=== PATIENT | female | born 1975 | race Caucasian/White ===

== ENCOUNTER 2021-07-16 16:44 | Inpatient (IN) ==
[~2021-07-16 16:44] MED LIST: DIPRIVAN VIAL ONE; NORMODYNE INJ 100 MG VIAL ONE; VERSED ONE; XYLOCAINE 2 % (PLAIN) ONE; ZOFRAN INJ 4 MG VIAL ONE
[2021-07-16] MEDS ORDERED: VANCOMYCIN IV *PREMIX 1 G/200 ML BAG 1 G/200 ML PIGGYBACK IV SCH (18:59)
[2021-07-16 19:30] LABS: BASOPHILS # (AUTO) 0.1 X10^3/uL (0.0-0.1); BASOPHILS % (AUTO) 0.3 % (0.2-1.0); EOSINOPHILS # (AUTO) 0.1 x10^3/uL (0.0-0.2); EOSINOPHILS % (AUTO) 0.4 % (0.9-2.9); HEMATOCRIT 39.9 % (36.0-47.0); HEMOGLOBIN 13.4 g/dL (12.0-16.0); LYMPHOCYTES % (AUTO) 10.4 % (21.0-51.0); MEAN CORPUSCULAR HEMOGLOBIN 27.3 pg (27.0-34.0); MEAN CORPUSCULAR HGB CONC 33.7 g/dL (33.0-35.0); MEAN PLATELET VOLUME 7.8 fL (7.4-11.0); MONOCYTES % (AUTO) 5.2 % (0.0-13.0); NEUTROPHILS # (AUTO) 16.1 x10^3/uL (2.2-4.8); NEUTROPHILS % (AUTO) 83.7 % (42.0-75.0); PLATELET COUNT 325 X10^3/uL (150.0-450.0); RED BLOOD COUNT 4.93 X10^6/uL (3.5-5.4); RED CELL DISTRIBUTION WIDTH 13.1 % (11.6-16.5); WHITE BLOOD COUNT 19.2 X10^3/uL (3.6-10.0)
[2021-07-16 19:42] LABS: ALANINE AMINOTRANSFERASE 18 Units/L (12-78); ALBUMIN 2.9 g/dL (3.4-5.0); ALKALINE PHOSPHATASE 119 Units/L (46-116); ASPARTATE AMINO TRANSFERASE 12 Units/L (15-37); BLOOD UREA NITROGEN 13 mg/dL (7-18); CALCIUM 9.2 mg/dL (8.5-10.1); CARBON DIOXIDE 26.4 mmol/L (21-32); CHLORIDE 94 mmol/L (98-107); COR CA(FOR HYPOALB) 10.1 mg/dL (8.5-10.1); COR NA(FOR HYPERGLY) 136 mmol/L (136-145); CREATININE 0.77 mg/dL (0.55-1.02); SODIUM 130 mmol/L (136-145); TOTAL PROTEIN 7.8 g/dL (6.4-8.2); eGFR NON BLACK RACES > 60 (>60)
[2021-07-16] MEDS ORDERED: ZOSYN VIAL 3.375 GRAMS IV ONE (20:07)
[2021-07-16 20:08] LABS: ERYTHROCYTE SEDIMENTATION RATE 46 MM/HOUR (0-20)
[2021-07-16] MEDS ORDERED: VANCOMYCIN IV *PREMIX 1 G/200 ML BAG 1 G/200 ML PIGGYBACK IV ONE (20:08)
[2021-07-16] MEDS ORDERED: NS 500 ML IV 500 ML IV ONE (20:09)
[2021-07-16] MEDS ORDERED: NS 100 ML IV + SPIKE MINIBAG* 100 ML IV ONE (20:09)
[2021-07-16] MEDS ORDERED: VANCOMYCIN IV *PREMIX 1.75 G/350 ML BAG 1.75 G/350 ML PIGGYBACK IV ONE (21:30)
[2021-07-16 22:07] VITALS: BMI 32.1
[2021-07-16] MEDS ORDERED: FLUZONE II4 or AFLURIA II4 IM ONE (22:07)
[2021-07-16] MEDS: NovoLIN R (or HumuLIN R) SC PRN (22:30)
[2021-07-16] MEDS: ZOSYN VIAL 3.375 GRAMS 3.375 G in NS 100 ML IV + SPIKE MINIBAG* 100 ML IV SCH (22:50)
[2021-07-17] MEDS ORDERED: TYLENOL 325 MG TAB PO ONE (04:24)
[2021-07-17] MEDS: TYLENOL 325 MG TAB PO PRN ×2 (04:30→18:30)
[2021-07-17] MEDS: ZOSYN VIAL 3.375 GRAMS 3.375 G in NS 100 ML IV + SPIKE MINIBAG* 100 ML IV SCH ×3 (05:46→22:40)
--- NOTE | 2021-07-17 07:46 | NOTE.SOAP ---
Soap Note Note for Day of Date of Exam: 07/16/21 Subjective Data Subjective Data: no change. Status post debridement of left foot at site of left great toe amputation. Plan for removal of Hardware of the right leg. Objective Data Temperature: 98.5 F Pulse Rate: 102 Respiratory Rate: 18 Blood Pressure: 143/72 O2 Sat by Pulse Oximetry: 98 Objective Data: CT angiogram shows no obvious stenosis of any vessels of either leg. Assessment Assessment: Left diabetic foot infection. Possibly infected Hardware right foot. Plan Plan: May proceed with your planned procedures . No arterial intervention plan.
[2021-07-17] MEDS ORDERED: TOPROL XL PO SCH (09:00)
[2021-07-17] MEDS: VANCOMYCIN IV *PREMIX 1.75 G/350 ML BAG 1.75 G/350 ML PIGGYBACK IV SCH ×2 (09:01→21:29)
[2021-07-17] MEDS: LIPITOR TAB 10 MG PO SCH (09:01)
[2021-07-17] MEDS: ZOLOFT PO SCH (09:02)
--- NOTE | 2021-07-17 10:02 | MRI ---
HISTORYLEFT FOOT ABSCESS, 1st toe status post injury 1 month ago, diabetesSTUDYMRI left foot without IV contrastCOMPARISONNoneTECHNIQUEMRI of the left footwithout IV contrast is performed using standard sequences in multiple planes.FINDINGSThere is likely skin ulceration in the dorsum of the 1st toe. Adjacent soft tissue edema is probable cellulitis. No evidence of an abscess is seen. The edema extends into the forefoot and midfoot regions which may be bland edema or cellulitis extension.Inhomogeneous fat saturation and toe positioning cause inhomogeneous signal in the toes. Possible mild osteomyelitis is present in the distal phalanx of the 1st toe. Less likely this is an artifactual appearance, as no obvious bony edema can be identified on the left sensitive T1 weighted imaging.There are arthritic changes in the 1st MTP joint with mild erosions in the distal head of the 1st metatarsal. Less prominent arthritic changes are seen in the other MTP joints. No fracture or bone destruction is seen.IMPRESSIONProbable cellulitis in the 1st toe with skin ulceration. Edema extends into the forefoot and midfoot which could be extension of cellulitis or reactive edema.Possible osteomyelitis in the distal phalanx of the 1st toe without overt destruction identified.Electronically signed by: Jt Epperson (Jul 17, 2021 10:00:40)
--- NOTE | 2021-07-17 10:09 | DR.H&P ---
H&P History & Physical for Day of: H&P Date: 07/17/21 Chief Complaint Chief Complaint: 45 yo female, diabetic , currently not under good control with HgB A1C of 11, who has several week history of ulcer to plantar surface of left great toe after trauma . Now with redness and swelling of the left great toe. Allergies Allergies Allergy/AdvReac Type Severity Reaction Status Date / Time codeine Allergy Verified 07/16/21 19:02 History of Present Illness History of Present Illness: As above Past Medical History Past Medical History: Depression, Diabetes and Hypertension Additional Medical History: increased cholesterol Past Surgical History Surgical History: Cholecystectomy Family History Family Medical History: Cancer Social History Does patient currently use any type of tobacco product: No Have you used tobacco products in the last 12 months: No Type of Tobacco Use: None Does any household member use tobacco: No Alcohol Use: None Drug Use: Prescription Drugs Prescription drug monitoring program results: PDMP reviewed and no concerns identified Medications Home Medications: codeine Allergy (Verified 07/16/21 19:02) CONTINUE taking the following medications atorvastatin 10 mg PO DAILY 07/16/21 [History] metformin 850 mg PO BID 07/16/21 [History] metoprolol succinate 25 mg PO BID 07/16/21 [History] sertraline 100 mg PO DAILY 07/16/21 [History] Labs Result Diagrams: 07/16/21 19:24 07/16/21 19:24 Labs: Laboratory WBC 19.2 X10^3/uL (3.6-10.0) H 07/16/21 19:24 RBC 4.93 X10^6/uL (3.5-5.4) 07/16/21 19:24 Hgb 13.4 g/dL (12.0-16.0) 07/16/21 19:24 Hct 39.9 % (36.0-47.0) 07/16/21 19:24 MCV 81.0 fL (80.0-100.0) 07/16/21 19:24 MCH 27.3 pg (27.0-34.0) 07/16/21 19:24 MCHC 33.7 g/dL (33.0-35.0) 07/16/21 19:24 RDW 13.1 % (11.6-16.5) 07/16/21 19:24 Plt Count 325 X10^3/uL (150.0-450.0) 07/16/21 19:24 MPV 7.8 fL (7.4-11.0) 07/16/21 19:24 Neut % (Auto) 83.7 % (42.0-75.0) H 07/16/21 19:24 Lymph % (Auto) 10.4 % (21.0-51.0) L 07/16/21 19:24 Wheeler % (Auto) 5.2 % (0.0-13.0) 07/16/21 19:24 Eos % (Auto) 0.4 % (0.9-2.9) L 07/16/21 19:24 Baso % (Auto) 0.3 % (0.2-1.0) 07/16/21 19:24 Neut # (Auto) 16.1 x10^3/uL (2.2-4.8) H 07/16/21 19:24 Lymph # (Auto) 2.0 X10^3/uL (1.3-2.9) 07/16/21 19:24 Wheeler # (Auto) 1.0 x10^3/uL (0.3-0.8) H 07/16/21 19:24 Eos # (Auto) 0.1 x10^3/uL (0.0-0.2) 07/16/21 19:24 Baso # (Auto) 0.1 X10^3/uL (0.0-0.1) 07/16/21 19:24 Absolute Nucleated RBC 0.1 /100WBC 07/16/21 19:24 ESR 46 MM/HOUR (0-20) H 07/16/21 19:24 Sodium 130 mmol/L (136-145) L 07/16/21 19:24 Corrected Sodium 136 mmol/L (136-145) 07/16/21 19:24 Potassium 4.7 mmol/L (3.5-5.1) 07/16/21 19:24 Chloride 94 mmol/L (98-107) L 07/16/21 19:24 Carbon Dioxide 26.4 mmol/L (21-32) 07/16/21 19:24 BUN 13 mg/dL (7-18) 07/16/21 19:24 Creatinine 0.77 mg/dL (0.55-1.02) 07/16/21 19:24 Est GFR (MDRD) Af Amer > 60 (>60) 07/16/21 19:24 Est GFR (MDRD) Non-Af > 60 (>60) 07/16/21 19:24 Glucose 335 mg/dL (65-99) H 07/16/21 19:24 POC Glucose (mg/dL) 175 mg/dL (65-99) H 07/17/21 05:40 Hemoglobin A1c 11.0 % 07/16/21 19:02 Calcium 9.2 mg/dL (8.5-10.1) 07/16/21 19:24 Corrected Calcium 10.1 mg/dL (8.5-10.1) 07/16/21 19:24 Total Bilirubin 0.40 mg/dL (0.2-1.0) 07/16/21 19:24 AST 12 Units/L (15-37) L 07/16/21 19:24 ALT 18 Units/L (12-78) 07/16/21 19:24 Alkaline Phosphatase 119 Units/L (46-116) H 07/16/21 19:24 C-Reactive Protein 94.80 mg/L (0-3.0) H 07/16/21 19:24 Total Protein 7.8 g/dL (6.4-8.2) 07/16/21 19:24 Albumin 2.9 g/dL (3.4-5.0) L 07/16/21 19:24 Globulin 4.9 g/dL (2.5-4.5) H 07/16/21 19:24 Albumin/Globulin Ratio 0.6 Ratio (1.1-2.1) L 07/16/21 19:24 SARS CoV-2 RNA Rapid KATY Negative (NEGATIVE) 07/16/21 18:00 Review of Systems Constitutional: No Symptoms Reported Eyes: No Symptoms Reported ENT: No Symptoms Reported Respiratory: No Symptoms Reported Cardiovascular: No Symptoms Reported Gastrointestinal: No Symptoms Reported Genitourinary: No Symptoms Reported Musculoskeletal: Foot Pain (left great toe) Skin: Other (ulcerated wound with exudate to the plantar surface of the left great toe with exudate ) Neurological: No Symptoms Reported Physical Exam Vital Signs: Temperature 97.7 F Pulse Rate [Left] 94 Pulse Rate 102 Respiratory Rate 18 Blood Pressure [Right Arm] 138/69 Blood Pressure 143/72 O2 Sat by Pulse Oximetry 97 Oriented: Normal, Time, Person and Place Eyes: Normal Ear: Normal Nose: Normal Throat: Normal Respiratory: Clear Throughout Cardiovascular: Normal and Other (all pulse palpable of the LE ) : Normal Auscultation: Bowel Sounds: Normal Palpation: Normal Tenderness: Normal Skin: Other (4x3x0.3 cm ulcerated wound with exudate to the plantar left great toe with mild redness. ) Musculoskeletal: Normal Psychiatric: Normal Mood Description: Calm Affect: Normal Speech Pattern: Clear Assessment/Plan (1) Cellulitis of great toe, left: Status: Acute Plan: IV Vancomycin and Zosyn, MRI of the left foot . Will need debridement possible amputation left great toe (2) Diabetes 1.5, managed as type 2: Status: Acute Plan: Sliding scale insulin now. Will discuss further treatment with her PCP. (3) Hyperlipidemia: Status: Acute Plan: atorvastatin (4) Depression: Status: Acute Plan: Sertraline (5) Ulcer of left great toe due to diabetes mellitus: Status: Acute Plan: see above Review Patient was examined?: Yes
--- NOTE | 2021-07-17 10:54 | RAD ---
HISTORYPRE OP, OSTEOMYELITIS OF LEFT FOOT Relevant Clinical InformationSTUDYCHEST, 1 VIEWCOMPARISONNoneFINDINGSThe trachea is midline. The cardiac silhouette is unremarkable. The lungs are clear without focal infiltrate or effusion. The bony thorax is unremarkable.IMPRESSIONNo acute cardiopulmonary findings .Electronically signed by: Maxine Portillo (Jul 17, 2021 10:51:33)
[2021-07-17] MEDS: MARCAINE 0.25% INJ ONE ×2 (11:05→13:38)
[2021-07-17] MEDS: BETADINE SOLN ONE ×4 (11:05→13:39)
[2021-07-17] MEDS: FENTANYL VIAL INJ 100 mcg ONE ×2 (11:58→13:38)
[2021-07-17] MEDS ORDERED: NS 1,000 ML IV 1,000 ML ONE (11:58)
--- NOTE | 2021-07-17 12:01 | DR.CONSULT ---
CONSULT Consultation for Day of: Date: 07/17/21 Chief Complaint Chief Complaint: left foot infection. Allergies Allergies Allergy/AdvReac Type Severity Reaction Status Date / Time codeine Allergy Verified 07/16/21 19:02 History of Present Illness History of Present Illness: Mrs. Lloyd is a 45 yo female with a Hx of uncontrolled DM. Her last A1c was 10.5. She stepped on a rock about 2 weeks and developed a wound to the left plantar hallux. She does walk bearfoot and does not use DM shoes. The wound became worse. She reports very minimal pain. She also relates she has neuropathy. She has not had any treatment for this yet. She reports some fevers and chills in the last few days. She denies any n/v/sob/calf pain. Past Medical History Past Medical History: Depression, Diabetes and Hypertension Additional Medical History: increased cholesterol Past Surgical History Surgical History: Cholecystectomy Family History Family Medical History: Cancer Social History Does patient currently use any type of tobacco product: No Have you used tobacco products in the last 12 months: No Type of Tobacco Use: None Does any household member use tobacco: No Alcohol Use: None Drug Use: Prescription Drugs Medications Home Medications: codeine Allergy (Verified 07/16/21 19:02) CONTINUE taking the following medications atorvastatin 10 mg PO DAILY 07/16/21 [History] metformin 850 mg PO BID 07/16/21 [History] metoprolol succinate 25 mg PO BID 07/16/21 [History] sertraline 100 mg PO DAILY 07/16/21 [History] Physical Exam Vital Signs: Temperature 97.7 F Pulse Rate [Left] 94 Respiratory Rate 18 Blood Pressure [Right Arm] 138/69 O2 Sat by Pulse Oximetry 97 Skin: Other (Left foot plantar hallux wound. The base of the wound is fibrotic. Measures approximately 2.0 cm x 1.0 cm. She has about erythema and edema extending from the wound circumferentially around the hallux to the mpj. It is oozing serous vs purulent drainage. Malodorous. No pain on palpation. ) Plan (1) Cellulitis of great toe, left: Status: Acute (2) Diabetes 1.5, managed as type 2: Status: Acute (3) Hyperlipidemia: Status: Acute (4) Depression: Status: Acute (5) Ulcer of left great toe due to diabetes mellitus: Status: Acute (6) Osteomyelitis of ankle and foot: Status: Acute Plan: Mrs. Lloyd is a 45 year old female with DM. Infected ulcer left plantar hallux. left distal phalanx osteomyelitis. Radiographs with evidence of soft tissue gas around the distal phalanx which correlates with the wound. MRI with evidence of cellulitis and osteo of the distal phalanx. She is currently NAD. Her wbc is 19.2. Plan: Continue NPO. Plan for the OR today for left ulcer debridement with possible left hallux amputation. We plan on sending specimen to micro and path. We will likely leave the wound open with packing for a few days. Continue abx. Pending vascular studies. NWB on the left PT evaluation Will monitor. Please do not hesitate to contact me with questions or concerns. Parker Jerome, Fellow. [facility] [phone]
[2021-07-17] MEDS ORDERED: SUPRANE ONE (12:16)
[2021-07-17] MEDS ORDERED: DIPRIVAN VIAL ONE (12:16)
[2021-07-17] MEDS ORDERED: REGLAN INJ 10 MG VIAL ONE (12:16)
[2021-07-17] MEDS ORDERED: VERSED ONE (12:16)
[2021-07-17] MEDS ORDERED: ZOFRAN INJ 4 MG VIAL ONE (12:16)
[2021-07-17] MEDS ORDERED: REGLAN INJ 10 MG VIAL IVP PRN (12:53)
[2021-07-17] MEDS ORDERED: BARHEMSYS INJ IVP PRN (12:53)
[2021-07-17] MEDS ORDERED: ZOFRAN INJ 4 MG VIAL IVP PRN (12:53)
[2021-07-17] MEDS ORDERED: PHENERGAN INJ 25 MG IM PRN (12:53)
[2021-07-17] MEDS ORDERED: BENADRYL INJ 50 MG VIAL IVP PRN (12:53)
[2021-07-17] MEDS ORDERED: DILAUDID INJ IVP PRN (12:53)
--- NOTE | 2021-07-17 14:34 | VAS ---
LOWER EXT ARTERIAL-UNILATERALHISTORY:LEFT FOOT ULCER, GREAT TOEComparison:NoneTechnique:Multiple brown scale and color flow Doppler images of the left lower extremity arterial system were obtained. Interrogation of the common femoral artery, superficial femoral artery, popliteal artery, and tibial arteries was performed.Findings:Triphasic and biphasic waveforms are seen throughout the left lower extremity from the common femoral arterial system to the tibial runoff.Left extremity:Common femoral : 90 cm/sSuperficial femoral proximal: 78 cm/sSuperficial femoral mid: 74 cm/sSuperficial femoral distal : 129 cm/sPopliteal : 71 cm/sPosterior tibial : 175 cm/sAnterior tibial /dorsalis pedis: 36 cm/sIMPRESSION:Likely areas of mild hemodynamically significant stenosis are present in the region of the distal left SFA and in the left MIXER BLENDER.http://www.ncbi.nlm.nih.gov/pubmed/[email or web address] ically signed by: Jt Epperson (Jul 17, 2021 14:32:51)
[2021-07-17] MEDS: NovoLIN R (or HumuLIN R) SC PRN ×2 (16:51→21:32)
--- NOTE | 2021-07-17 17:12 | RAD ---
EXAM: LEFT FOOT X-RAY SERIESHISTORY: Foot pain. Postop great toe amputation.TECHNIQUE: 3 viewsCOMPARISON: None available.FINDINGS:Status post amputation of the distal aspect of the great toe at the level of the interphalangeal joint. No stump bone erosion reminiscent of osteomyelitis is seen.There is no acute bony fracture, or joint subluxation or dislocation seen. No focal bone erosion or sclerosis is seen. No evidence for inflammatory or degenerative arthritis is seen. There is a prominent, approximately 1.1 cm, plantar calcaneal bone spur.There is peripheral atherosclerosis; rule out diabetic vasculopathy. There is soft tissue irregularity with suggestion of increased density and soft tissue emphysema involving the distal stump of the great toe which in keeping with recent postsurgical change. No foreign body is seen.IMPRESSION:1. Status post amputation of the distal aspect of the great toe at the level of the interphalangeal joint.2. No stump bone erosion reminiscent of osteomyelitis is seen.3. No acute bony fracture, or joint subluxation or dislocation seen.4. Soft tissue irregularity with suggestion of increased density and soft tissue emphysema involving the distal stump of the great toe which in keeping with recent postsurgical change.5. Peripheral atherosclerosis; rule out diabetic vasculopathy.6. Consider follow-up evaluation with MRI to rule out radiographically occult early osteomyelitis if clinically warranted.Electronically signed by: Last Ribera (Jul 17, 2021 17:10:37)
[2021-07-18] MEDS: TYLENOL 325 MG TAB PO PRN ×4 (03:53→23:27)
[2021-07-18 04:48] LABS: BASOPHILS # (AUTO) 0.1 X10^3/uL (0.0-0.1); BASOPHILS % (AUTO) 0.8 % (0.2-1.0); EOSINOPHILS # (AUTO) 0.2 x10^3/uL (0.0-0.2); EOSINOPHILS % (AUTO) 2.2 % (0.9-2.9); HEMATOCRIT 39.7 % (36.0-47.0); HEMOGLOBIN 13.5 g/dL (12.0-16.0); LYMPHOCYTES # (AUTO) 2.5 X10^3/uL (1.3-2.9); LYMPHOCYTES % (AUTO) 26.9 % (21.0-51.0); MEAN CORPUSCULAR HEMOGLOBIN 27.3 pg (27.0-34.0); MEAN CORPUSCULAR HGB CONC 33.9 g/dL (33.0-35.0); MEAN CORPUSCULAR VOLUME 80.5 fL (80.0-100.0); MEAN PLATELET VOLUME 7.8 fL (7.4-11.0); MONOCYTES # (AUTO) 0.7 x10^3/uL (0.3-0.8); MONOCYTES % (AUTO) 7.7 % (0.0-13.0); NEUTROPHILS # (AUTO) 5.8 x10^3/uL (2.2-4.8); NEUTROPHILS % (AUTO) 62.4 % (42.0-75.0); PLATELET COUNT 346 X10^3/uL (150.0-450.0); RED BLOOD COUNT 4.94 X10^6/uL (3.5-5.4); RED CELL DISTRIBUTION WIDTH 12.9 % (11.6-16.5); WHITE BLOOD COUNT 9.3 X10^3/uL (3.6-10.0)
[2021-07-18 04:54] LABS: ALANINE AMINOTRANSFERASE 18 Units/L (12-78); ALBUMIN 2.6 g/dL (3.4-5.0); ALKALINE PHOSPHATASE 118 Units/L (46-116); ASPARTATE AMINO TRANSFERASE 14 Units/L (15-37); BLOOD UREA NITROGEN 7 mg/dL (7-18); CALCIUM 8.6 mg/dL (8.5-10.1); CARBON DIOXIDE 25.4 mmol/L (21-32); CHLORIDE 99 mmol/L (98-107); COR CA(FOR HYPOALB) 9.7 mg/dL (8.5-10.1); COR NA(FOR HYPERGLY) 135 mmol/L (136-145); CREATININE 0.56 mg/dL (0.55-1.02); SODIUM 133 mmol/L (136-145); TOTAL PROTEIN 7.3 g/dL (6.4-8.2); eGFR NON BLACK RACES > 60 (>60)
[2021-07-18] MEDS: ZOSYN VIAL 3.375 GRAMS 3.375 G in NS 100 ML IV + SPIKE MINIBAG* 100 ML IV SCH ×3 (05:40→22:47)
[2021-07-18] MEDS: NovoLIN R (or HumuLIN R) SC PRN ×4 (06:11→21:41)
[2021-07-18] MEDS ORDERED: BETADINE SOLN ONE (06:18)
[2021-07-18] MEDS ORDERED: PERCOCET TAB 5/325 MG PO PRN (06:31)
[2021-07-18] MEDS ORDERED: PHARMACY COMMENT IV ONE (08:30)
[2021-07-18] MEDS ORDERED: ZOLOFT ONE (08:38)
[2021-07-18] MEDS: ZOLOFT PO SCH (08:43)
[2021-07-18] MEDS: LIPITOR TAB 10 MG PO SCH (08:46)
[2021-07-18] MEDS: VANCOMYCIN IV *PREMIX 1.75 G/350 ML BAG 1.75 G/350 ML PIGGYBACK IV SCH ×2 (08:46→21:30)
--- NOTE | 2021-07-18 11:17 | PCM.PROG ---
Progress Note Progress Note for Day of Date of Exam: 07/18/21 Subjective Subjective: Mrs. Lloyd is a 45 year old DM who is s/p left partial hallux amputation, DOS was 07/17. Patient is doing well with minimal pain. No issues over night. She denies any f/c/n/v/sob/calf pain this morning. Past Medical Family Social History Past Med/Fam/Surg Hx: No changes since H&P Allergies: Allergies codeine Allergy (Verified 07/16/21 19:02) Vital Signs and I&O's Vital Signs: Temperature 98.9 F Pulse Rate [Left] 97 Pulse Rate 98 Respiratory Rate 20 Blood Pressure [Right Arm] 166/79 Blood Pressure 134/79 O2 Sat by Pulse Oximetry 95 Intake and Output: Intake & Output 07/15/21 07/16/21 07/17/21 07/18/21 23:59 23:59 23:59 23:59 Intake Total 400 / 400 2714 / 2714 640 / 640 Output Total 1009 / 1009 Balance 400 / 400 1705 / 1705 640 / 640 Physical Exam Oriented: Normal, Time, Person and Place Eyes: Normal Ear: Normal Nose: Normal Throat: Normal Cardiovascular: Normal and Other (all pulse palpable of the LE ) : Normal Auscultation: Bowel Sounds: Normal Tenderness: Normal Skin: Other ( Left foot wound along the hallux with the proximal phalanx exposed. Healthy bleeding noted. The skin edges appear viable. No fibrotic or necrotic tissue appreciated. No purulence noted. Mild erythema around the great toe, about 1.0 cm. No malodor. No pain on palpation. ) Musculoskeletal: Normal Psychiatric: Normal Mood Description: Calm Affect: Normal Speech Pattern: Clear and Appropriate Laboratory and Diagnostics Result Diagrams: 07/18/21 04:05 07/18/21 04:05 Labs: 07/17/21 12:32 Toe - Left Big Wound Gram Stain - Final Laboratory WBC 9.3 X10^3/uL (3.6-10.0) D 07/18/21 04:05 RBC 4.94 X10^6/uL (3.5-5.4) 07/18/21 04:05 Hgb 13.5 g/dL (12.0-16.0) 07/18/21 04:05 Hct 39.7 % (36.0-47.0) 07/18/21 04:05 MCV 80.5 fL (80.0-100.0) 07/18/21 04:05 MCH 27.3 pg (27.0-34.0) 07/18/21 04:05 MCHC 33.9 g/dL (33.0-35.0) 07/18/21 04:05 RDW 12.9 % (11.6-16.5) 07/18/21 04:05 Plt Count 346 X10^3/uL (150.0-450.0) 07/18/21 04:05 MPV 7.8 fL (7.4-11.0) 07/18/21 04:05 Neut % (Auto) 62.4 % (42.0-75.0) 07/18/21 04:05 Lymph % (Auto) 26.9 % (21.0-51.0) 07/18/21 04:05 Bullitt % (Auto) 7.7 % (0.0-13.0) 07/18/21 04:05 Eos % (Auto) 2.2 % (0.9-2.9) 07/18/21 04:05 Baso % (Auto) 0.8 % (0.2-1.0) 07/18/21 04:05 Neut # (Auto) 5.8 x10^3/uL (2.2-4.8) H 07/18/21 04:05 Lymph # (Auto) 2.5 X10^3/uL (1.3-2.9) 07/18/21 04:05 Bullitt # (Auto) 0.7 x10^3/uL (0.3-0.8) 07/18/21 04:05 Eos # (Auto) 0.2 x10^3/uL (0.0-0.2) 07/18/21 04:05 Baso # (Auto) 0.1 X10^3/uL (0.0-0.1) 07/18/21 04:05 Absolute Nucleated RBC 0.0 /100WBC 07/18/21 04:05 ESR 46 MM/HOUR (0-20) H 07/16/21 19:24 Sodium 133 mmol/L (136-145) L 07/18/21 04:05 Corrected Sodium 135 mmol/L (136-145) L 07/18/21 04:05 Potassium 3.7 mmol/L (3.5-5.1) 07/18/21 04:05 Chloride 99 mmol/L (98-107) 07/18/21 04:05 Carbon Dioxide 25.4 mmol/L (21-32) 07/18/21 04:05 BUN 7 mg/dL (7-18) 07/18/21 04:05 Creatinine 0.56 mg/dL (0.55-1.02) 07/18/21 04:05 Est GFR (MDRD) Af Amer > 60 (>60) 07/18/21 04:05 Est GFR (MDRD) Non-Af > 60 (>60) 07/18/21 04:05 Glucose 198 mg/dL (65-99) H 07/18/21 04:05 POC Glucose (mg/dL) 249 mg/dL (65-99) H 07/18/21 06:05 Hemoglobin A1c 11.0 % 07/16/21 19:02 Calcium 8.6 mg/dL (8.5-10.1) 07/18/21 04:05 Corrected Calcium 9.7 mg/dL (8.5-10.1) 07/18/21 04:05 Total Bilirubin 0.40 mg/dL (0.2-1.0) 07/18/21 04:05 AST 14 Units/L (15-37) L 07/18/21 04:05 ALT 18 Units/L (12-78) 07/18/21 04:05 Alkaline Phosphatase 118 Units/L (46-116) H 07/18/21 04:05 C-Reactive Protein 94.80 mg/L (0-3.0) H 07/16/21 19:24 Total Protein 7.3 g/dL (6.4-8.2) 07/18/21 04:05 Albumin 2.6 g/dL (3.4-5.0) L 07/18/21 04:05 Globulin 4.7 g/dL (2.5-4.5) H 07/18/21 04:05 Albumin/Globulin Ratio 0.6 Ratio (1.1-2.1) L 07/18/21 04:05 SARS CoV-2 RNA Rapid KATY Negative (NEGATIVE) 07/16/21 18:00 Tissue Pathology To follow 07/17/21 12:32 Plan (1) Cellulitis of great toe, left: Status: Acute Plan: IV Vancomycin and Zosyn, MRI of the left foot . Will need debridement possible amputation left great toe (2) Diabetes 1.5, managed as type 2: Status: Acute Plan: Sliding scale insulin now. Will discuss further treatment with her PCP. (3) Hyperlipidemia: Status: Acute Plan: atorvastatin (4) Depression: Status: Acute Plan: Sertraline (5) Ulcer of left great toe due to diabetes mellitus: Status: Acute Plan: see above (6) Osteomyelitis of ankle and foot: Status: Acute Plan: Mrs. Lloyd is a 45 year old female who is s/p partial hallux amp on the left. Wound kept open post op. healthy bleeding noted. No purulence. decreased erythema. Intra op cultures are showing GPC and gram neg rods. Post op xrays with expected changes that show disarticulation at the IPJ. Her white coun t is 9.3, down from 19. She is with VSS and NAD. Plan: Wound flushed with sterile saline Dressed with betadine soaked gauze and dsd PWB on the left with heel touch only in a post op shoe. PT eval. Continue abx NPO after midnight. Plan for the OR for delayed primary closure. Will monitor. Please do not hesitate to contact me with questions or concerns Parker Jerome, Fellow [facility] [phone]
--- NOTE | 2021-07-18 19:21 | NOTE.SOAP ---
Soap Note Note for Day of Date of Exam: 07/18/21 Subjective Data Subjective Data: Patient admitted with osteomyelitis of the left great Toe with poorly controlled diabetes. She was admitted by me and had an amputation of the left great toe yesterday. She continues on IV antibiotics. Podiatry Services planning delayed closure of the wound of the left foot tomorrow . Hopefully she can be discharged shortly thereafter. Objective Data Temperature: 98 F Pulse Rate: 91 Respiratory Rate: 18 Blood Pressure: 160/76 O2 Sat by Pulse Oximetry: 98 Objective Data: No complaints. Dressing intact left foot Assessment Assessment: Podiatry Service planning delayed closure of left foot tomorrow Plan Plan: plan to discharge tomorrow after surgical closure of the left foot wound. She will follow up with her primary care provider to better assess and treat her diabetes. That is already been planned and she has already contacted her PCP.
[2021-07-18 21:15] LABS: CREATININE 0.62 mg/dL (0.55-1.02)
[2021-07-19 05:06] LABS: BASOPHILS # (AUTO) 0.1 X10^3/uL (0.0-0.1); BASOPHILS % (AUTO) 0.7 % (0.2-1.0); EOSINOPHILS # (AUTO) 0.2 x10^3/uL (0.0-0.2); EOSINOPHILS % (AUTO) 3.1 % (0.9-2.9); HEMATOCRIT 38.5 % (36.0-47.0); LYMPHOCYTES # (AUTO) 2.6 X10^3/uL (1.3-2.9); LYMPHOCYTES % (AUTO) 31.7 % (21.0-51.0); MEAN CORPUSCULAR HEMOGLOBIN 26.8 pg (27.0-34.0); MEAN CORPUSCULAR HGB CONC 33.8 g/dL (33.0-35.0); MEAN CORPUSCULAR VOLUME 79.5 fL (80.0-100.0); MEAN PLATELET VOLUME 7.7 fL (7.4-11.0); MONOCYTES # (AUTO) 0.6 x10^3/uL (0.3-0.8); MONOCYTES % (AUTO) 7.2 % (0.0-13.0); NEUTROPHILS # (AUTO) 4.6 x10^3/uL (2.2-4.8); NEUTROPHILS % (AUTO) 57.3 % (42.0-75.0); PLATELET COUNT 288 X10^3/uL (150.0-450.0); RED BLOOD COUNT 4.84 X10^6/uL (3.5-5.4); RED CELL DISTRIBUTION WIDTH 12.9 % (11.6-16.5); WHITE BLOOD COUNT 8.1 X10^3/uL (3.6-10.0)
[2021-07-19 05:15] LABS: ALANINE AMINOTRANSFERASE 19 Units/L (12-78); ALBUMIN 2.4 g/dL (3.4-5.0); ALKALINE PHOSPHATASE 126 Units/L (46-116); ASPARTATE AMINO TRANSFERASE 15 Units/L (15-37); BLOOD UREA NITROGEN 9 mg/dL (7-18); CALCIUM 8.6 mg/dL (8.5-10.1); CARBON DIOXIDE 24.6 mmol/L (21-32); CHLORIDE 102 mmol/L (98-107); COR CA(FOR HYPOALB) 9.9 mg/dL (8.5-10.1); COR NA(FOR HYPERGLY) 138 mmol/L (136-145); CREATININE 0.54 mg/dL (0.55-1.02); SODIUM 136 mmol/L (136-145); TOTAL PROTEIN 6.8 g/dL (6.4-8.2); eGFR NON BLACK RACES > 60 (>60)
[2021-07-19] MEDS: NovoLIN R (or HumuLIN R) SC PRN (06:06)
[2021-07-19] MEDS: ZOSYN VIAL 3.375 GRAMS 3.375 G in NS 100 ML IV + SPIKE MINIBAG* 100 ML IV SCH ×2 (06:06→14:18)
[2021-07-19] MEDS ORDERED: BETADINE SOLN ONE (07:54)
[2021-07-19] MEDS ORDERED: MARCAINE 0.25% INJ ONE (07:54)
[2021-07-19] MEDS: VANCOMYCIN IV *PREMIX 1.75 G/350 ML BAG 1.75 G/350 ML PIGGYBACK IV SCH (08:00)
[2021-07-19] MEDS ORDERED: NS 1,000 ML IV 1,000 ML ONE (08:48)
[2021-07-19] MEDS ORDERED: OFIRMEV IV 1000 MG VIAL 1,000 MG/100 ML VIAL IV ONE (08:58)
[2021-07-19] MEDS ORDERED: FENTANYL VIAL INJ 100 mcg ONE (09:54)
[2021-07-19] MEDS ORDERED: ZOLOFT ONE (11:27)
[2021-07-19] MEDS: ZOLOFT PO SCH (11:31)
[2021-07-19] MEDS: LIPITOR TAB 10 MG PO SCH (11:31)
[2021-07-19 14:18] VITALS: BP 144/74
--- NOTE | 2021-07-19 15:53 | W.DIS.FURT ---
Summary of Discharge Discharge Summary of Date Date of Exam: 07/19/21 Admission Date Date of Admission: 07/16/21 Admission Diagnosis Hospital Course: This 45 year old diabetic presented on the day of admission with significant ulceration of the plantar aspect of the left great toe with surrounding cellulitis. She started on IV antibiotics. MRI was consistent with osteomyelitis and she underwent amputation of the left great toe .on July 19 2021 she underwent secondary delayed closure of the wound and will be discharged home on PO clindamycin 150 mg poq ID and Percocet 5mg tablets one every six hours PRN pain . The patient is diabetic and on presentation her hemoglobin A1c was 11. This has been discussed with her primary care provider who will deal with her blood sugar as an outpatient. Vital Signs: Vital Signs (72 hours) 07/16/21 20:00 07/16/21 23:56 07/17/21 04:00 Temperature 98.8 F 98.5 F 98.5 F Pulse Rate Pulse Rate [Left] 118 H 101 H 96 H Respiratory Rate 20 22 21 Blood Pressure Blood Pressure [Left Arm] Blood Pressure [Right Arm] 145/85 143/79 138/77 O2 Sat by Pulse Oximetry 98 98 97 07/17/21 04:30 07/17/21 05:30 07/17/21 07:54 Temperature 97.7 F Pulse Rate Pulse Rate [Left] 94 H Respiratory Rate 18 18 18 Blood Pressure Blood Pressure [Left Arm] Blood Pressure [Right Arm] 138/69 O2 Sat by Pulse Oximetry 97 07/17/21 11:59 07/17/21 12:45 07/17/21 13:00 Temperature 98.4 F 98.2 F 98.0 F Pulse Rate 99 H 107 H Pulse Rate [Left] 104 H Respiratory Rate 18 18 18 Blood Pressure 97/54 151/80 Blood Pressure [Left Arm] Blood Pressure [Right Arm] 192/93 O2 Sat by Pulse Oximetry 99 99 99 07/17/21 13:05 07/17/21 13:10 07/17/21 13:15 Temperature Pulse Rate 105 H 100 H 98 H Pulse Rate [Left] Respiratory Rate 16 16 16 Blood Pressure 143/82 143/82 134/79 Blood Pressure [Left Arm] Blood Pressure [Right Arm] O2 Sat by Pulse Oximetry 96 94 L 93 L 07/17/21 13:30 07/17/21 13:45 07/17/21 14:00 Temperature 98.2 F 98.2 F Pulse Rate Pulse Rate [Left] 103 H 97 H 92 H Respiratory Rate 20 18 18 Blood Pressure Blood Pressure [Left Arm] Blood Pressure [Right Arm] 136/74 132/67 118/59 O2 Sat by Pulse Oximetry 96 98 98 07/17/21 14:15 07/17/21 14:30 07/17/21 15:30 Temperature 98.6 F Pulse Rate Pulse Rate [Left] 92 H 97 H 94 H Respiratory Rate 18 18 20 Blood Pressure Blood Pressure [Left Arm] Blood Pressure [Right Arm] 125/59 140/70 152/80 O2 Sat by Pulse Oximetry 98 98 96 07/17/21 16:30 07/17/21 17:30 07/17/21 18:30 Temperature 97.6 F 98.6 F 98.4 F Pulse Rate Pulse Rate [Left] 86 103 H 98 H Respiratory Rate 20 20 18 Blood Pressure Blood Pressure [Left Arm] Blood Pressure [Right Arm] 156/81 164/78 138/83 O2 Sat by Pulse Oximetry 96 94 L 96 07/17/21 19:30 07/17/21 20:00 07/17/21 23:20 Temperature 98.3 F Pulse Rate Pulse Rate [Left] 95 H Respiratory Rate 23 23 23 Blood Pressure Blood Pressure [Left Arm] Blood Pressure [Right Arm] 145/71 O2 Sat by Pulse Oximetry 96 07/17/21 23:50 07/18/21 00:00 07/18/21 03:53 Temperature 98.6 F Pulse Rate Pulse Rate [Left] 93 H Respiratory Rate 23 22 20 Blood Pressure Blood Pressure [Left Arm] Blood Pressure [Right Arm] 175/85 O2 Sat by Pulse Oximetry 97 07/18/21 04:00 07/18/21 04:53 07/18/21 08:00 Temperature 98.4 F 98.9 F Pulse Rate Pulse Rate [Left] 93 H 97 H Respiratory Rate 22 20 18 Blood Pressure Blood Pressure [Left Arm] Blood Pressure [Right Arm] 142/80 166/79 O2 Sat by Pulse Oximetry 97 95 07/18/21 08:48 07/18/21 09:48 07/18/21 12:00 Temperature 98.1 F Pulse Rate Pulse Rate [Left] 92 H Respiratory Rate 20 20 20 Blood Pressure Blood Pressure [Left Arm] Blood Pressure [Right Arm] 149/74 O2 Sat by Pulse Oximetry 98 07/18/21 16:00 07/18/21 17:02 07/18/21 18:02 Temperature 98.0 F Pulse Rate Pulse Rate [Left] 91 H Respiratory Rate 18 20 20 Blood Pressure Blood Pressure [Left Arm] Blood Pressure [Right Arm] 160/76 O2 Sat by Pulse Oximetry 98 07/18/21 19:21 07/18/21 20:00 07/18/21 23:27 Temperature 98 F 98.9 F Pulse Rate 91 H Pulse Rate [Left] 90 Respiratory Rate 18 22 20 Blood Pressure 160/76 Blood Pressure [Left Arm] Blood Pressure [Right Arm] 172/81 O2 Sat by Pulse Oximetry 98 96 07/19/21 00:00 07/19/21 00:27 07/19/21 04:00 Temperature 97.9 F 97.9 F Pulse Rate Pulse Rate [Left] 84 92 H Respiratory Rate 22 20 19 Blood Pressure Blood Pressure [Left Arm] Blood Pressure [Right Arm] 163/79 164/81 O2 Sat by Pulse Oximetry 98 98 07/19/21 08:00 07/19/21 11:00 07/19/21 11:15 Temperature 98.4 F 98.2 F 98.2 F Pulse Rate Pulse Rate [Left] 96 H 91 H 89 Respiratory Rate 20 20 20 Blood Pressure Blood Pressure [Left Arm] 158/69 138/67 Blood Pressure [Right Arm] 171/90 O2 Sat by Pulse Oximetry 99 96 98 07/19/21 11:46 07/19/21 12:00 07/19/21 12:16 Temperature 98.0 F 98.0 F 98.0 F Pulse Rate Pulse Rate [Left] 90 87 93 H Respiratory Rate 20 20 20 Blood Pressure Blood Pressure [Left Arm] 143/70 136/68 141/70 Blood Pressure [Right Arm] O2 Sat by Pulse Oximetry 98 97 98 07/19/21 13:26 07/19/21 14:17 Temperature 98.6 F 98.6 F Pulse Rate Pulse Rate [Left] 93 H 95 H Respiratory Rate 20 20 Blood Pressure Blood Pressure [Left Arm] 135/66 144/74 Blood Pressure [Right Arm] O2 Sat by Pulse Oximetry 97 96 Labs: Laboratory Last Values WBC 8.1 X10^3/uL (3.6-10.0) 07/19/21 04:20 RBC 4.84 X10^6/uL (3.5-5.4) 07/19/21 04:20 Hgb 13.0 g/dL (12.0-16.0) 07/19/21 04:20 Hct 38.5 % (36.0-47.0) 07/19/21 04:20 MCV 79.5 fL (80.0-100.0) L 07/19/21 04:20 MCH 26.8 pg (27.0-34.0) L 07/19/21 04:20 MCHC 33.8 g/dL (33.0-35.0) 07/19/21 04:20 RDW 12.9 % (11.6-16.5) 07/19/21 04:20 Plt Count 288 X10^3/uL (150.0-450.0) 07/19/21 04:20 MPV 7.7 fL (7.4-11.0) 07/19/21 04:20 Neut % (Auto) 57.3 % (42.0-75.0) 07/19/21 04:20 Lymph % (Auto) 31.7 % (21.0-51.0) 07/19/21 04:20 [place] % (Auto) 7.2 % (0.0-13.0) 07/19/21 04:20 Eos % (Auto) 3.1 % (0.9-2.9) H 07/19/21 04:20 Baso % (Auto) 0.7 % (0.2-1.0) 07/19/21 04:20 Neut # (Auto) 4.6 x10^3/uL (2.2-4.8) 07/19/21 04:20 Lymph # (Auto) 2.6 X10^3/uL (1.3-2.9) 07/19/21 04:20 [place] # (Auto) 0.6 x10^3/uL (0.3-0.8) 07/19/21 04:20 Eos # (Auto) 0.2 x10^3/uL (0.0-0.2) 07/19/21 04:20 Baso # (Auto) 0.1 X10^3/uL (0.0-0.1) 07/19/21 04:20 Absolute Nucleated RBC 0.1 /100WBC 07/19/21 04:20 ESR 46 MM/HOUR (0-20) H 07/16/21 19:24 Sodium 136 mmol/L (136-145) 07/19/21 04:20 Corrected Sodium 138 mmol/L (136-145) 07/19/21 04:20 Potassium 3.6 mmol/L (3.5-5.1) 07/19/21 04:20 Chloride 102 mmol/L (98-107) 07/19/21 04:20 Carbon Dioxide 24.6 mmol/L (21-32) 07/19/21 04:20 BUN 9 mg/dL (7-18) 07/19/21 04:20 Creatinine 0.54 mg/dL (0.55-1.02) L 07/19/21 04:20 Est GFR (MDRD) Af Amer > 60 (>60) 07/19/21 04:20 Est GFR (MDRD) Non-Af > 60 (>60) 07/19/21 04:20 Glucose 197 mg/dL (65-99) H 07/19/21 04:20 POC Glucose (mg/dL) 199 mg/dL (65-99) H 07/19/21 12:16 Hemoglobin A1c 11.0 % 07/16/21 19:02 Calcium 8.6 mg/dL (8.5-10.1) 07/19/21 04:20 Corrected Calcium 9.9 mg/dL (8.5-10.1) 07/19/21 04:20 Total Bilirubin 0.30 mg/dL (0.2-1.0) 07/19/21 04:20 AST 15 Units/L (15-37) 07/19/21 04:20 ALT 19 Units/L (12-78) 07/19/21 04:20 Alkaline Phosphatase 126 Units/L (46-116) H 07/19/21 04:20 C-Reactive Protein 94.80 mg/L (0-3.0) H 07/16/21 19:24 Total Protein 6.8 g/dL (6.4-8.2) 07/19/21 04:20 Albumin 2.4 g/dL (3.4-5.0) L 07/19/21 04:20 Globulin 4.4 g/dL (2.5-4.5) 07/19/21 04:20 Albumin/Globulin Ratio 0.5 Ratio (1.1-2.1) L 07/19/21 04:20 Vancomycin Trough 12.0 ug/mL (15-20) L 07/18/21 20:41 SARS CoV-2 RNA Rapid KATY Negative (NEGATIVE) 07/16/21 18:00 Tissue Pathology To follow 07/17/21 12:32 Reason For Visit: OSTEOMYELITIS OF LEFT FOOT WITH ABSCESS Discharge Date Discharge Date: 07/19/21 Discharge Diagnosis All Active Problems (Updated 07/17/21 @ 11:46 by Parker Jerome) Osteomyelitis of ankle and foot (Acute) Ulcer of left great toe due to diabetes mellitus (Acute) Depression (Acute) Hyperlipidemia (Acute) Diabetes 1.5, managed as type 2 (Acute) Cellulitis of great toe, left (Acute) Plan of Treatment: Continue with present treatment and follow up plan. Pt is to keep follow up appointment as instructed and take medications as ordered. Discharge Medications Discharge Medications: codeine Allergy (Verified 07/16/21 19:02) CONTINUE taking the following medications atorvastatin 10 mg PO DAILY 07/16/21 [History] metformin 850 mg PO BID 07/16/21 [History] metoprolol succinate 25 mg PO BID 07/16/21 [History] sertraline 100 mg PO DAILY 07/16/21 [History] New Prescriptions clindamycin HCl 150 mg PO QID 7 Days #28 cap 07/19/21 [Rx] oxycodone-acetaminophen [Percocet] 1 tab PO Q6H PRN #30 tab MDD 6 07/19/21 [Rx] Follow up and Referral Follow Up: 1 Week Discharge Disposition Assessment: osteomyelitis left great toe, diabetes Discharge Disposition: good Discharge Condition: good Discharge Plan Discharge Plan Hospital Course: This 45 year old diabetic presented on the day of admission with significant ulceration of the plantar aspect of the left great toe with surrounding cellulitis. She started on IV antibiotics. MRI was consistent with osteomyelitis and she underwent amputation of the left great toe .on July 19 2021 she underwent secondary delayed closure of the wound and will be discharged home on PO clindamycin 150 mg poq ID and Percocet 5mg tablets one every six hours PRN pain . The patient is diabetic and on presentation her hemoglobin A1c was 11. This has been discussed with her primary care provider who will deal with her blood sugar as an outpatient. Patient Disposition: 01 HOME, SELF-CARE Condition: Stable Health Concerns: Post Hospitalization: new medications and changes needed to prevent readmission or further decline. Pt educated and given instructions on all concerns. Care Plan Goals: Care of wound left foot, diabetic control. Plan of Treatment: Continue with present treatment and follow up plan. Pt is to keep follow up appointment as instructed and take medications as ordered. Assessment: osteomyelitis left great toe, diabetes Prescription drug monitoring program results: PDMP reviewed and no concerns identified Prescriptions: New clindamycin HCl 150 mg capsule 150 mg PO QID 7 Days Qty: 28 RF: 0 oxycodone-acetaminophen [Percocet] 5-325 mg tablet 1 tab PO Q6H MDD 6 PRNQty: 30 RF: 0 Continued sertraline 100 mg Tablet 100 mg PO DAILY RF: 0 metformin 850 mg Tablet 850 mg PO BID RF: 0 atorvastatin 10 mg Tablet 10 mg PO DAILY RF: 0 metoprolol succinate 25 mg Tablet Extended Release 24 Hr 25 mg PO BID RF: 0 Follow ups/Referrals Follow ups/Referrals: SHIRLEY SALDIVAR [Primary Care Provider] - 1 WEEK Michel Castillo [CONSULTING PHYSICIAN] - 1 WEEK Instructions Instructions: Osteomyelitis, Adult, Living With an Amputation, Gangrene, Phantom Limb Pain, Traumatic Toe Amputation, Diabetic Neuropathy, Preventing Diabetes Mellitus Complications Stand Alone Forms: Excuse From Work or School, Precautions for COVID19, [facility], Patient Portal, Social Distancing
--- NOTE | 2021-07-31 17:14 | NOTE.SOAP ---
Soap Note Note for Day of Date of Exam: 07/17/21 Subjective Data Subjective Data: Patietn in the OR today for left hallux amputation by Podiatry service secondary to osteomyelitis of the left great toe Objective Data Temperature: 98.6 F Pulse Rate: 20 Respiratory Rate: 20 Blood Pressure: 144/74 O2 Sat by Pulse Oximetry: 96 Objective Data: In OR for amputation left great toe Assessment Assessment: Osteomyelitis left great toe Plan Plan: Continue IV antibiotics. Podiatry service is planning delayed primary closure of heraclio left foot incision on 07/19/2021
== END 2021-07-19 15:10 | disposition home or self-care (01) | DRG 504 ==
LOC: MED/SURG 17:43
PROVIDERS: ADMIT Surgery; ATTEND Surgery
DX: R79.82 Elevated C-reactive protein (CRP); I96 Gangrene, not elsewhere classified; L97.528 Non-pressure chronic ulcer of other part of left foot with other specified severity; F32.A Depression, unspecified; E11.621 Type 2 diabetes mellitus with foot ulcer; R51.9 Headache, unspecified; B95.61 Methicillin susceptible Staphylococcus aureus infection as the cause of diseases classified elsewhere; M86.172 Other acute osteomyelitis, left ankle and foot; I10 Essential (primary) hypertension; L03.032 Cellulitis of left toe; B95.4 Other streptococcus as the cause of diseases classified elsewhere; E11.65 Type 2 diabetes mellitus with hyperglycemia; R70.0 Elevated erythrocyte sedimentation rate; E78.2 Mixed hyperlipidemia; Z20.822 Contact with and (suspected) exposure to COVID-19